=== PATIENT | female | born 1935 | race Caucasian/White ===

== ENCOUNTER → 2020-12-27 | Outpatient (CLI) | payer MEDICARE, BC ==
[~2020-12-27] MED LIST: CIPRO250 MG PO; DILANTIN; DILANTIN100 MG PO; HYDROCODON-ACE1 EA11 PO; IOPAMIDOL 370 MG/ML 200 ML INFUS..BTL INJ ONE; LASIX20 MG PO; XANAX; XANAX0.25 MG PO
[2020-12-27 09:12] LABS: BLOOD UREA NITROGEN 18 mg/dL (7-26); BUN/CREATININE RATIO 23 (6-25); CREATININE, SERUM 0.78 mg/dL (0.57-1.11); EST GLOMERULAR FILTRATION RATE > 60 ML/MIN (60-)
== END ==
LOC: NM 07:07
PROVIDERS: ATTEND Surgery
DX: L03.317 Cellulitis of buttock (principal)
CPT/HCPCS: 36415; 72193; 78315; 82565; 84520; A9503; Q9967; A9521; A9570

== ENCOUNTER 2020-12-28 12:56 | Inpatient (IN) | payer MEDICARE, BC ==
[~2020-12-28] VITALS: Ht 160 cm; Wt 60.3 kg
[~2020-12-28 12:56] MED LIST changes: -CIPRO250 MG PO; -DILANTIN100 MG PO; -HYDROCODON-ACE1 EA11 PO; -IOPAMIDOL 370 MG/ML 200 ML INFUS..BTL INJ ONE; -LASIX20 MG PO; -XANAX0.25 MG PO
[2020-12-28 14:04] LABS: BASOPHILS % 0.5 % (0.0-1.0); HEMATOCRIT 38.5 % (34.2-44.1); HEMOGLOBIN 12.2 g/dL (12.0-16.0); LYMPHOCYTES # (AUTO) 1.1 (1.0-3.2); LYMPHOCYTES % 25.2 % (18.0-39.1); MEAN CORPUSCULAR HGB CONC 31.7 g/dL (31-35); MEAN CORPUSCULAR VOLUME 88.5 fL (81-99); MONOCYTES # (AUTO) 0.4 (0.2-0.8); NEUTROPHILS # (AUTO) 2.7 (2.1-6.9); NEUTROPHILS % 64.1 % (38.7-80.0); PLATELET COUNT 141 x10e3/uL (140-360); RED BLOOD COUNT 4.35 x10e6/uL (3.6-5.1); RED CELL DISTRIBUTION WIDTH 17.4 % (11.7-14.4)
[2020-12-28 14:07] LABS: INR 1.03; PROTHROMBIN TIME 14.1 seconds (11.9-14.5)
[2020-12-28 14:08] LABS: PARTIAL THROMBOPLASTIN TIME 31.8 seconds (23.8-35.5)
[2020-12-28 14:10] LABS: CLARITY,URINE SL CLOUDY (CLEAR); COLOR,URINE YELLOW (YELLOW); KETONES,URINE NEGATIVE (NEGATIVE); LEUKOCYTE ESTERASE ,URINE TRACE (NEGATIVE); NITRITE,URINE NEGATIVE (NEGATIVE); PROTEIN,URINE DIPSTICK NEGATIVE (NEGATIVE); URINE UROBILINOGEN 1 mg/dL (0.2 - 1)
[2020-12-28 14:16] LABS: ALANINE AMINOTRANSFERASE 11 IU/L (0-55); ALBUMIN 3.5 g/dL (3.5-5.0); ALBUMIN/GLOBULIN RATIO 0.9 (0.8-2.0); ALKALINE PHOSPHATASE 76 IU/L (40-150); ANION GAP 12.6 mmol/L (8-16); BLOOD UREA NITROGEN 15 mg/dL (7-26); BUN/CREATININE RATIO 21 (6-25); CARBON DIOXIDE 25 mmol/L (22-29); CHLORIDE 109 mmol/L (98-107); CREATINE KINASE 20 IU/L (29-168); CREATININE, SERUM 0.72 mg/dL (0.57-1.11); EST GLOMERULAR FILTRATION RATE > 60 ML/MIN (60-); GLUCOSE 88 mg/dL (74-118); POTASSIUM 3.6 mmol/L (3.5-5.1); SODIUM 143 mmol/L (136-145)
[2020-12-28 14:20] LABS: BACTERIA,URINE MANY /HPF; EPITHELIAL CELLS,URINE FEW /LPF; RBC,URINE 0-5 /HPF (0-5); WBC,URINE (MAN) 21-50 /HPF (0-5)
[2020-12-28] MEDS ORDERED: HYDROMORPHONE 1MG/1ML INJ IV STA (15:03)
[2020-12-28] MEDS ORDERED: ONDANSETRON HCL INJ 2MG/ML 2ML 2 MG/ML VIAL IV STA (15:03)
[2020-12-28] MEDS ORDERED: VANCOMYCIN 1GM/NS 250 ML 250 ML IV ONE (15:30)
[2020-12-28] MEDS ORDERED: HYDROCODON-ACE1 EA11 PO (15:30)
[2020-12-28] MEDS ORDERED: LASIX20 MG PO (15:30)
[2020-12-28] MEDS ORDERED: XANAX0.25 MG PO (15:30)
[2020-12-28] MEDS ORDERED: DILANTIN100 MG PO (15:30)
[2020-12-28] MEDS: PIPERACILLIN/TAZOBAC 3.375 GM in SODIUM CHLORIDE 0.9% 50ML 50 ML IV SCH (16:48)
[2020-12-28] MEDS: SODIUM CHLORIDE 0.9% 1000ML 1,000 ML IV SCH (16:48)
[2020-12-28 17:14] VITALS: BP 150/63
[2020-12-28 17:40] VITALS: BP 150/63
[2020-12-28 18:00] VITALS: BP 150/63
[2020-12-28 20:00] VITALS: BP 132/60
[2020-12-28 20:52] VITALS: BP 132/60
[2020-12-28 21:28] LABS: CREATINE KINASE MB 0.5 ng/mL (0-5.0)
[2020-12-28] MEDS ORDERED: PIPERACILLIN/TAZOBAC 3.375 GM VIAL ONE (22:08)
[2020-12-28] MEDS ORDERED: SODIUM CHLORIDE 0.9% 50ML 50 ML ONE (22:09)
[2020-12-28] MEDS: ALPRAZOLAM 0.25 MG TAB PO SCH (22:15)
[2020-12-28] MEDS: HYDROMORPHONE 1MG/1ML INJ IV PRN (22:22)
[2020-12-29] VITALS (10 sets, daily range): BP systolic 100–171; BP diastolic 56–73
[2020-12-29] MEDS: PIPERACILLIN/TAZOBAC 3.375 GM in SODIUM CHLORIDE 0.9% 50ML 50 ML IV SCH ×5 (00:20→23:21)
[2020-12-29 02:03] LABS: CREATINE KINASE MB 0.4 ng/mL (0-5.0)
[2020-12-29] MEDS ORDERED: SODIUM CHLORIDE 0.9% 250ML 250 ML ONE (03:10)
[2020-12-29] MEDS ORDERED: TEMAZEPAM 7.5 MG CAP PO PRN (04:45)
[2020-12-29] MEDS ORDERED: POLYETHYLENE GLYCOL 3350 17 GM PACK PO PRN (04:45)
[2020-12-29] MEDS ORDERED: HYDRALAZINE HCL 20 MG/ML VIAL IV PRN (04:45)
[2020-12-29] MEDS ORDERED: ACETAMINOPHEN 325 MG TAB PO PRN (04:45)
[2020-12-29] MEDS: SODIUM CHLORIDE 0.9% 1000ML 1,000 ML IV SCH (05:48)
[2020-12-29] MEDS ORDERED: PIPERACILLIN/TAZOBAC 3.375 GM VIAL ONE ×4 (05:49→22:16)
[2020-12-29] MEDS ORDERED: SODIUM CHLORIDE 0.9% 50ML 50 ML ONE ×3 (05:49→17:00)
[2020-12-29] MEDS: HYDROMORPHONE 1MG/1ML INJ IV PRN ×3 (05:49→22:15)
[2020-12-29 06:02] LABS: BASOPHILS % 0.3 % (0.0-1.0); EOSINOPHILS % 1.2 % (0.0-6.0); HEMOGLOBIN 10.8 g/dL (12.0-16.0); LYMPHOCYTES # (AUTO) 0.8 (1.0-3.2); LYMPHOCYTES % 23.7 % (18.0-39.1); MEAN CORPUSCULAR HEMOGLOBIN 28.6 pg (28-32); MEAN CORPUSCULAR HGB CONC 31.8 g/dL (31-35); MEAN CORPUSCULAR VOLUME 90.2 fL (81-99); MONOCYTES # (AUTO) 0.4 (0.2-0.8); MONOCYTES % 10.9 % (4.4-11.3); NEUTROPHILS % 63.6 % (38.7-80.0); PLATELET COUNT 110 x10e3/uL (140-360); RED BLOOD COUNT 3.77 x10e6/uL (3.6-5.1); RED CELL DISTRIBUTION WIDTH 17.6 % (11.7-14.4)
[2020-12-29 06:37] LABS: ALANINE AMINOTRANSFERASE 8 IU/L (0-55); ALBUMIN 2.6 g/dL (3.5-5.0); ALBUMIN/GLOBULIN RATIO 0.9 (0.8-2.0); ALKALINE PHOSPHATASE 58 IU/L (40-150); BLOOD UREA NITROGEN 16 mg/dL (7-26); BUN/CREATININE RATIO 26 (6-25); CALCIUM 8.5 mg/dL (8.4-10.2); CARBON DIOXIDE 22 mmol/L (22-29); CHLORIDE 115 mmol/L (98-107); CREATININE, SERUM 0.62 mg/dL (0.57-1.11); EST GLOMERULAR FILTRATION RATE > 60 ML/MIN (60-); GLUCOSE 88 mg/dL (74-118); SODIUM 143 mmol/L (136-145)
[2020-12-29 07:07] LABS: CREATINE KINASE MB 0.4 ng/mL (0-5.0)
[2020-12-29 07:23] LABS: CHOL/HDL RATIO 3.6 (3.0-3.6); PHOSPHORUS 3.1 MG/DL (2.3-4.7)
[2020-12-29 07:42] LABS: THYROID STIMULATING HORMONE 1.813 uIU/mL (0.350-4.940)
[2020-12-29] MEDS: FAMOTIDINE 20 MG TAB PO SCH (08:10)
[2020-12-29] MEDS: ALPRAZOLAM 0.25 MG TAB PO SCH ×4 (08:10→22:14)
[2020-12-29] MEDS: DOCUSATE SODIUM 100 MG CAP PO SCH ×2 (08:10→16:48)
[2020-12-29] MEDS ORDERED: HYDROCODONE/APAP 5MG-325MG TAB PO PRN (08:30)
[2020-12-29] MEDS ORDERED: PHENYTOIN 50 MG TAB PO SCH (09:00)
[2020-12-29] MEDS: FUROSEMIDE 20 MG TAB PO SCH ×2 (09:00→16:42)
[2020-12-29] MEDS: PHENYTOIN SODIUM EXT REL 100 MG CAP PO SCH ×4 (09:06→22:14)
[2020-12-29] MEDS ORDERED: LORAZEPAM INJ 2 MG/ML VIAL IV ONE (12:00)
[2020-12-29] MEDS: ENOXAPARIN SOD INJ 40 MG/0.4 ML SYR SC SCH (16:48)
[2020-12-30] VITALS (8 sets, daily range): BP systolic 122–160; BP diastolic 64–94
[2020-12-30] MEDS ORDERED: PIPERACILLIN/TAZOBAC 3.375 GM VIAL ONE ×4 (05:14→23:06)
[2020-12-30] MEDS ORDERED: SODIUM CHLORIDE 0.9% 50ML 50 ML ONE ×4 (05:15→23:07)
[2020-12-30] MEDS: HYDROMORPHONE 1MG/1ML INJ IV PRN ×4 (05:24→22:19)
[2020-12-30] MEDS: PIPERACILLIN/TAZOBAC 3.375 GM in SODIUM CHLORIDE 0.9% 50ML 50 ML IV SCH ×4 (05:24→23:02)
[2020-12-30] MEDS: FUROSEMIDE 20 MG TAB PO SCH ×2 (08:38→17:36)
[2020-12-30] MEDS: DOCUSATE SODIUM 100 MG CAP PO SCH ×2 (08:38→17:36)
[2020-12-30] MEDS: PHENYTOIN SODIUM EXT REL 100 MG CAP PO SCH ×4 (08:38→21:43)
[2020-12-30] MEDS: ALPRAZOLAM 0.25 MG TAB PO SCH ×3 (08:38→21:43)
[2020-12-30] MEDS: FAMOTIDINE 20 MG TAB PO SCH (08:38)
[2020-12-30] MEDS: ENOXAPARIN SOD INJ 40 MG/0.4 ML SYR SC SCH (17:36)
[2020-12-30] MEDS: ONDANSETRON HCL INJ 2MG/ML 2ML 2 MG/ML VIAL IV PRN (22:04)
[2020-12-31 00:07] VITALS: BP 109/56
[2020-12-31 04:14] VITALS: BP 98/55
[2020-12-31] MEDS ORDERED: SODIUM CHLORIDE 0.9% 50ML 50 ML ONE (05:22)
[2020-12-31] MEDS ORDERED: PIPERACILLIN/TAZOBAC 3.375 GM VIAL ONE (05:22)
[2020-12-31] MEDS: HYDROMORPHONE 1MG/1ML INJ IV PRN (05:26)
[2020-12-31] MEDS: PIPERACILLIN/TAZOBAC 3.375 GM in SODIUM CHLORIDE 0.9% 50ML 50 ML IV SCH (05:26)
[2020-12-31] MEDS: ONDANSETRON HCL INJ 2MG/ML 2ML 2 MG/ML VIAL IV PRN (05:26)
[2020-12-31 06:51] LABS: BASOPHILS % 0.2 % (0.0-1.0); EOSINOPHILS # (AUTO) 0.1 (0.0-0.4); EOSINOPHILS % 1.5 % (0.0-6.0); HEMATOCRIT 38.4 % (34.2-44.1); HEMOGLOBIN 12.2 g/dL (12.0-16.0); LYMPHOCYTES # (AUTO) 1.1 (1.0-3.2); LYMPHOCYTES % 22.8 % (18.0-39.1); MEAN CORPUSCULAR HEMOGLOBIN 28.2 pg (28-32); MEAN CORPUSCULAR HGB CONC 31.8 g/dL (31-35); MEAN CORPUSCULAR VOLUME 88.7 fL (81-99); MONOCYTES # (AUTO) 0.4 (0.2-0.8); MONOCYTES % 8.4 % (4.4-11.3); NEUTROPHILS # (AUTO) 3.1 (2.1-6.9); NEUTROPHILS % 66.9 % (38.7-80.0); PLATELET COUNT 107 x10e3/uL (140-360); RED BLOOD COUNT 4.33 x10e6/uL (3.6-5.1); RED CELL DISTRIBUTION WIDTH 17.3 % (11.7-14.4)
[2020-12-31 07:25] VITALS: BP_SYST 119; BP_SYST 162; BP_DIAS 72; BP_DIAS 78
[2020-12-31 07:28] LABS: ANION GAP 14.8 mmol/L (8-16); BLOOD UREA NITROGEN 12 mg/dL (7-26); BUN/CREATININE RATIO 17 (6-25); CALCIUM 9.4 mg/dL (8.4-10.2); CARBON DIOXIDE 23 mmol/L (22-29); CHLORIDE 109 mmol/L (98-107); CREATININE, SERUM 0.69 mg/dL (0.57-1.11); EST GLOMERULAR FILTRATION RATE > 60 ML/MIN (60-); GLUCOSE 92 mg/dL (74-118); POTASSIUM 3.8 mmol/L (3.5-5.1); SODIUM 143 mmol/L (136-145)
[2020-12-31] MEDS ORDERED: CIPRO250 MG PO (08:14)
[2020-12-31 08:27] VITALS: BP 119/72
[2020-12-31] MEDS: FAMOTIDINE 20 MG TAB PO SCH (08:27)
[2020-12-31] MEDS: DOCUSATE SODIUM 100 MG CAP PO SCH (08:27)
[2020-12-31] MEDS: FUROSEMIDE 20 MG TAB PO SCH (08:27)
[2020-12-31] MEDS: PHENYTOIN SODIUM EXT REL 100 MG CAP PO SCH (08:27)
[2020-12-31] MEDS: ALPRAZOLAM 0.25 MG TAB PO SCH (08:27)
== END 2020-12-31 13:15 | disposition home or self-care (01) | DRG 689 ==
LOC: ER 13:18 → ERHOLD 15:46 → MED/SURG3 17:08 → UNDODISIN 12-31 11:30
PROVIDERS: ADMIT Internal Medicine; ATTEND Internal Medicine
DX: N39.0 Urinary tract infection, site not specified (principal); R53.2 Functional quadriplegia; M48.55XA Collapsed vertebra, not elsewhere classified, thoracolumbar region, initial encounter for fracture; M54.5 Low back pain; G40.909 Epilepsy, unspecified, not intractable, without status epilepticus; F41.9 Anxiety disorder, unspecified; Z99.3 Dependence on wheelchair; B95.2 Enterococcus as the cause of diseases classified elsewhere; Z20.822 Contact with and (suspected) exposure to COVID-19
CPT/HCPCS: 36415; 71045; 72131; 80048; 80053; 80061; 81001; 82550; 82553; 83735; 84100; 84443; 84484; 85025; 85610; 85730; 87040; 87086; 87186; 93005; 97139; 99251; 99284; J1170; J1650; J2060; J2405; J2543; J3370; J7030; J7050; U0002

== ENCOUNTER 2021-01-29 14:46 | Emergency (ER) | payer MEDICARE, BC ==
[~2021-01-29] VITALS: Ht 160 cm; Wt 60.3 kg
[~2021-01-29 14:46] MED LIST changes: +CIPRO250 MG PO; +DILANTIN100 MG PO; +HYDROCODON-ACE1 EA11 PO; +LASIX20 MG PO; +XANAX0.25 MG PO
[2021-01-29 15:36] LABS: BASOPHILS % 0.2 % (0.0-1.0); EOSINOPHILS % 0.8 % (0.0-6.0); HEMATOCRIT 37.2 % (34.2-44.1); HEMOGLOBIN 12.3 g/dL (12.0-16.0); LYMPHOCYTES # (AUTO) 1.5 (1.0-3.2); LYMPHOCYTES % 29.9 % (18.0-39.1); MEAN CORPUSCULAR HEMOGLOBIN 29.5 pg (28-32); MEAN CORPUSCULAR HGB CONC 33.1 g/dL (31-35); MEAN CORPUSCULAR VOLUME 89.2 fL (81-99); MONOCYTES # (AUTO) 0.4 (0.2-0.8); NEUTROPHILS % 60.9 % (38.7-80.0); PLATELET COUNT 163 x10e3/uL (140-360); RED BLOOD COUNT 4.17 x10e6/uL (3.6-5.1)
[2021-01-29 15:51] LABS: CLARITY,URINE SL CLOUDY (CLEAR); COLOR,URINE YELLOW (YELLOW); KETONES,URINE NEGATIVE (NEGATIVE); LEUKOCYTE ESTERASE ,URINE SMALL (NEGATIVE); NITRITE,URINE NEGATIVE (NEGATIVE); PROTEIN,URINE DIPSTICK NEGATIVE (NEGATIVE); URINE UROBILINOGEN 0.2 mg/dL (0.2 - 1)
[2021-01-29 15:52] LABS: ALANINE AMINOTRANSFERASE 9 IU/L (0-55); ALBUMIN 3.3 g/dL (3.5-5.0); ALBUMIN/GLOBULIN RATIO 0.9 (0.8-2.0); ALKALINE PHOSPHATASE 62 IU/L (40-150); BLOOD UREA NITROGEN 16 mg/dL (7-26); BUN/CREATININE RATIO 25 (6-25); CALCIUM 9.9 mg/dL (8.4-10.2); CARBON DIOXIDE 20 mmol/L (22-29); CHLORIDE 114 mmol/L (98-107); CREATININE, SERUM 0.65 mg/dL (0.57-1.11); EST GLOMERULAR FILTRATION RATE > 60 ML/MIN (60-); GLUCOSE 86 mg/dL (74-118); SODIUM 140 mmol/L (136-145)
[2021-01-29 15:53] LABS: LIPASE 35 U/L (8-78)
[2021-01-29 16:09] LABS: BACTERIA,URINE RARE /HPF; EPITHELIAL CELLS,URINE RARE /LPF; RBC,URINE 0-5 /HPF (0-5)
[2021-01-29 17:08] VITALS: BP 134/62
== END 2021-01-29 17:09 | disposition home or self-care (01) ==
LOC: ER 15:18
DX: I10 Essential (primary) hypertension (principal); M25.552 Pain in left hip; M25.551 Pain in right hip; I69.351 Hemiplegia and hemiparesis following cerebral infarction affecting right dominant side
CPT/HCPCS: 36415; 71045; 80053; 81001; 83690; 84484; 85025; 93005; 99283

== ENCOUNTER 2021-03-17 15:50 | Emergency (ER) | payer MEDICARE, BC ==
[~2021-03-17] VITALS: Ht 160 cm; Wt 60.3 kg
[2021-03-17 17:25] LABS: CLARITY,URINE CLEAR (CLEAR); COLOR,URINE YELLOW (YELLOW); KETONES,URINE NEGATIVE (NEGATIVE); NITRITE,URINE NEGATIVE (NEGATIVE); PROTEIN,URINE DIPSTICK NEGATIVE (NEGATIVE); URINE UROBILINOGEN 0.2 mg/dL (0.2 - 1)
[2021-03-17 17:26] LABS: LEUKOCYTE ESTERASE ,URINE SMALL (NEGATIVE)
[2021-03-17 17:37] LABS: BACTERIA,URINE RARE /HPF; EPITHELIAL CELLS,URINE RARE /LPF; RBC,URINE 0-5 /HPF (0-5); WBC,URINE (MAN) >50 /HPF (0-5)
[2021-03-17] MEDS ORDERED: AUGMENTIN 875-1 EACH PO (18:07)
== END 2021-03-17 18:38 | disposition home or self-care (01) ==
LOC: ER 17:04
DX: R30.0 Dysuria (principal); N39.0 Urinary tract infection, site not specified; G40.909 Epilepsy, unspecified, not intractable, without status epilepticus; F41.9 Anxiety disorder, unspecified; M54.9 Dorsalgia, unspecified; G89.29 Other chronic pain; I69.351 Hemiplegia and hemiparesis following cerebral infarction affecting right dominant side
CPT/HCPCS: 81001; 87086; 99283

== ENCOUNTER 2021-10-08 13:18 | Inpatient (IN) | payer MEDICARE, BC ==
[~2021-10-08] VITALS: Ht 160 cm; Wt 72.6 kg
[~2021-10-08 13:18] MED LIST changes: +AUGMENTIN 875-1 EACH PO
[2021-10-08] MEDS ORDERED: SODIUM CHLORIDE 0.9% 1000ML 1,000 ML IV STA (14:04)
[2021-10-08 14:28] LABS: BASOPHILS % 0.4 % (0.0-1.0); EOSINOPHILS % 0.4 % (0.0-6.0); HEMATOCRIT 42.3 % (34.2-44.1); HEMOGLOBIN 14.3 g/dL (12.0-16.0); LYMPHOCYTES # (AUTO) 0.9 (1.0-3.2); LYMPHOCYTES % 36.8 % (18.0-39.1); MEAN CORPUSCULAR HGB CONC 33.8 g/dL (31-35); MEAN CORPUSCULAR VOLUME 97.7 fL (81-99); MONOCYTES # (AUTO) 0.3 (0.2-0.8); MONOCYTES % 10.3 % (4.4-11.3); NEUTROPHILS # (AUTO) 1.3 (2.1-6.9); NEUTROPHILS % 51.7 % (38.7-80.0); PLATELET COUNT 70 x10e3/uL (140-360); RED BLOOD COUNT 4.33 x10e6/uL (3.6-5.1); RED CELL DISTRIBUTION WIDTH 13.5 % (11.7-14.4)
[2021-10-08 14:32] LABS: INR 0.93; PROTHROMBIN TIME 13.2 seconds (11.9-14.5)
[2021-10-08 14:33] LABS: PARTIAL THROMBOPLASTIN TIME 30.9 seconds (23.8-35.5)
[2021-10-08 14:47] LABS: ALBUMIN 3.1 g/dL (3.5-5.0); ALBUMIN/GLOBULIN RATIO 0.9 (0.8-2.0); ANION GAP 8.8 mmol/L (8-16); CALCIUM 10.4 mg/dL (8.4-10.2); CREATININE, SERUM 0.6 mg/dL (0.57-1.11); MAGNESIUM 1.7 MG/DL (1.3-2.1); POTASSIUM 3.8 mmol/L (3.5-5.1)
[2021-10-08 14:53] LABS: CREATINE KINASE MB 0.1 ng/mL (0-5.0)
[2021-10-08 15:01] LABS: CLARITY,URINE SL CLOUDY (CLEAR); COLOR,URINE YELLOW (YELLOW); KETONES,URINE NEGATIVE (NEGATIVE); LEUKOCYTE ESTERASE ,URINE NEGATIVE (NEGATIVE); NITRITE,URINE NEGATIVE (NEGATIVE); PROTEIN,URINE DIPSTICK NEGATIVE (NEGATIVE); URINE UROBILINOGEN 0.2 mg/dL (0.2 - 1)
[2021-10-08 15:02] LABS: AMPHETAMINES SCREEN,URINE NEGATIVE (NEGATIVE); BENZODIAZEPINES SCREEN,URINE POSITIVE (NEGATIVE); PHENCYCLIDINE SCREEN,URINE NEGATIVE (NEGATIVE)
[2021-10-08 15:09] LABS: SALICYLATE < 5.0 mg/dL (0-30)
[2021-10-08 15:18] LABS: BACTERIA,URINE MODERATE /HPF; EPITHELIAL CELLS,URINE FEW /LPF; WBC,URINE (MAN) 0-5 /HPF (0-5)
[2021-10-08] MEDS ORDERED: ONDANSETRON HCL INJ 2MG/ML 2ML 2 MG/ML VIAL IV PRN (18:15)
[2021-10-08] MEDS: SODIUM CHLORIDE 0.9% 1000ML 1,000 ML IV SCH (19:05)
[2021-10-08] MEDS: FAMOTIDINE 20 MG/2 ML VIAL IV SCH (19:05)
[2021-10-09] VITALS (7 sets, daily range): BP systolic 126–155; BP diastolic 55–77
[2021-10-09] MEDS: HYDROCODONE/APAP 5MG-325MG TAB PO PRN ×5 (00:20→21:00)
[2021-10-09 03:39] LABS: CREATINE KINASE MB 0.4 ng/mL (0-5.0)
[2021-10-09] MEDS: SODIUM CHLORIDE 0.9% 1000ML 1,000 ML IV SCH (04:50)
[2021-10-09] MEDS: FAMOTIDINE 20 MG/2 ML VIAL IV SCH ×2 (05:53→17:37)
[2021-10-09] MEDS ORDERED: SODIUM CHLORIDE 0.9% 1000ML 1,000 ML IV ONE (18:15)
[2021-10-09] MEDS: ALPRAZOLAM 0.25 MG TAB PO PRN (21:00)
[2021-10-09] MEDS ORDERED: ALPRAZOLAM 0.25 MG TAB PO SCH (21:00)
[2021-10-10] VITALS (9 sets, daily range): BP systolic 113–148; BP diastolic 57–68
[2021-10-10 05:24] LABS: EOSINOPHILS % 0.4 % (0.0-6.0); HEMATOCRIT 39.8 % (34.2-44.1); HEMOGLOBIN 13.1 g/dL (12.0-16.0); LYMPHOCYTES # (AUTO) 0.9 (1.0-3.2); LYMPHOCYTES % 33.7 % (18.0-39.1); MEAN CORPUSCULAR HEMOGLOBIN 32.2 pg (28-32); MEAN CORPUSCULAR HGB CONC 32.9 g/dL (31-35); MEAN CORPUSCULAR VOLUME 97.8 fL (81-99); MONOCYTES # (AUTO) 0.2 (0.2-0.8); MONOCYTES % 6.1 % (4.4-11.3); NEUTROPHILS # (AUTO) 1.6 (2.1-6.9); NEUTROPHILS % 59.4 % (38.7-80.0); PLATELET COUNT 64 x10e3/uL (140-360); RED BLOOD COUNT 4.07 x10e6/uL (3.6-5.1); RED CELL DISTRIBUTION WIDTH 13.7 % (11.7-14.4)
[2021-10-10 05:42] LABS: ANION GAP 6.9 mmol/L (8-16); CALCIUM 9.3 mg/dL (8.4-10.2); CREATININE, SERUM 0.58 mg/dL (0.57-1.11); MAGNESIUM 1.7 MG/DL (1.3-2.1); PHOSPHORUS 1.8 MG/DL (2.3-4.7); POTASSIUM 3.9 mmol/L (3.5-5.1)
[2021-10-10] MEDS: FAMOTIDINE 20 MG/2 ML VIAL IV SCH (05:49)
[2021-10-10 07:44] LABS: ALBUMIN 2.6 g/dL (3.5-5.0); BILIRUBIN,DIRECT 0.2 mg/dL (0.0-0.5); CHOL/HDL RATIO 3.3 (3.0-3.6)
[2021-10-10 07:51] LABS: CREATINE KINASE MB 1.7 ng/mL (0-5.0)
[2021-10-10] MEDS: FUROSEMIDE 20 MG TAB PO SCH ×2 (10:02→17:24)
[2021-10-10] MEDS ORDERED: PHOSPHORUS 250 MG TAB PO ONE (11:00)
[2021-10-10] MEDS ORDERED: ONDANSETRON HCL 4 MG ORAL DISINTEGRATING TAB PO PRN (17:00)
[2021-10-10] MEDS: HYDROCODONE/APAP 5MG-325MG TAB PO PRN (18:28)
[2021-10-11 00:33] VITALS: BP 135/67
[2021-10-11] MEDS: HYDROCODONE/APAP 5MG-325MG TAB PO PRN ×4 (00:37→21:51)
[2021-10-11 01:40] VITALS: BP 152/58
[2021-10-11 06:10] VITALS: BP 132/64
[2021-10-11 06:25] LABS: EOSINOPHILS % 0.8 % (0.0-6.0); HEMATOCRIT 39.2 % (34.2-44.1); HEMOGLOBIN 13.2 g/dL (12.0-16.0); LYMPHOCYTES # (AUTO) 1.2 (1.0-3.2); LYMPHOCYTES % 45.2 % (18.0-39.1); MEAN CORPUSCULAR HEMOGLOBIN 32.5 pg (28-32); MEAN CORPUSCULAR HGB CONC 33.7 g/dL (31-35); MEAN CORPUSCULAR VOLUME 96.6 fL (81-99); MONOCYTES # (AUTO) 0.2 (0.2-0.8); MONOCYTES % 7.3 % (4.4-11.3); NEUTROPHILS # (AUTO) 1.2 (2.1-6.9); NEUTROPHILS % 46.3 % (38.7-80.0); PLATELET COUNT 59 x10e3/uL (140-360); RED BLOOD COUNT 4.06 x10e6/uL (3.6-5.1); RED CELL DISTRIBUTION WIDTH 13.5 % (11.7-14.4)
[2021-10-11] MEDS: ALPRAZOLAM 0.25 MG TAB PO PRN (06:41)
[2021-10-11 07:29] LABS: ANION GAP 7.4 mmol/L (8-16); CALCIUM 8.9 mg/dL (8.4-10.2); CREATININE, SERUM 0.53 mg/dL (0.57-1.11); MAGNESIUM 1.6 MG/DL (1.3-2.1); PHOSPHORUS 2.1 MG/DL (2.3-4.7); POTASSIUM 3.4 mmol/L (3.5-5.1)
[2021-10-11] MEDS: FAMOTIDINE 20 MG TAB PO SCH ×2 (08:53→17:33)
[2021-10-11] MEDS: FUROSEMIDE 20 MG TAB PO SCH ×2 (08:53→17:33)
[2021-10-11] MEDS ORDERED: LORAZEPAM INJ 2 MG/ML VIAL IV PRN (10:00)
[2021-10-11] MEDS ORDERED: DOCUSATE SODIUM 100 MG CAP PO ONE (11:00)
[2021-10-11] MEDS ORDERED: POTASSIUM CHLORIDE 20 MEQ TAB CR PO ONE (11:00)
[2021-10-11] MEDS ORDERED: LACTULOSE SYRUP 20 GM/30 ML UDC PO ONE (11:00)
[2021-10-11] MEDS: CHOLECALCIFEROL 400 UNIT TAB PO SCH (11:29)
[2021-10-11] MEDS: ASCORBIC ACID 500 MG TAB PO SCH ×2 (11:29→17:34)
[2021-10-11] MEDS: ZINC SULFATE 220 MG CAP PO SCH (11:29)
[2021-10-11 19:10] VITALS: BP 116/60
[2021-10-11 22:05] VITALS: BP 116/60
[2021-10-12 00:45] VITALS: BP 160/73
[2021-10-12] MEDS: ALPRAZOLAM 0.25 MG TAB PO PRN ×2 (01:00→06:16)
[2021-10-12] MEDS: HYDROCODONE/APAP 5MG-325MG TAB PO PRN ×4 (03:30→14:30)
[2021-10-12 05:40] VITALS: BP 131/69
[2021-10-12 06:11] LABS: BASOPHILS % 0.3 % (0.0-1.0); EOSINOPHILS % 0.3 % (0.0-6.0); HEMATOCRIT 39.1 % (34.2-44.1); HEMOGLOBIN 13.4 g/dL (12.0-16.0); MEAN CORPUSCULAR HEMOGLOBIN 32.4 pg (28-32); MEAN CORPUSCULAR HGB CONC 34.3 g/dL (31-35); MEAN CORPUSCULAR VOLUME 94.7 fL (81-99); MONOCYTES # (AUTO) 0.2 (0.2-0.8); NEUTROPHILS # (AUTO) 1.6 (2.1-6.9); NEUTROPHILS % 55.1 % (38.7-80.0); PLATELET COUNT 70 x10e3/uL (140-360); RED BLOOD COUNT 4.13 x10e6/uL (3.6-5.1); RED CELL DISTRIBUTION WIDTH 13.4 % (11.7-14.4)
[2021-10-12 07:24] LABS: ALBUMIN 2.7 g/dL (3.5-5.0); ALBUMIN/GLOBULIN RATIO 0.8 (0.8-2.0); ANION GAP 9.3 mmol/L (8-16); CALCIUM 9.2 mg/dL (8.4-10.2); CREATININE, SERUM 0.53 mg/dL (0.57-1.11); POTASSIUM 3.3 mmol/L (3.5-5.1)
[2021-10-12 08:06] VITALS: BP 128/69
[2021-10-12] MEDS: FAMOTIDINE 20 MG TAB PO SCH ×2 (08:36→17:17)
[2021-10-12] MEDS: ASCORBIC ACID 500 MG TAB PO SCH ×2 (08:37→17:17)
[2021-10-12] MEDS: FUROSEMIDE 20 MG TAB PO SCH ×2 (08:37→17:17)
[2021-10-12] MEDS: ZINC SULFATE 220 MG CAP PO SCH (08:37)
[2021-10-12] MEDS: CHOLECALCIFEROL 400 UNIT TAB PO SCH (08:37)
[2021-10-12] MEDS ORDERED: POTASSIUM CHLORIDE 20 MEQ TAB CR PO ONE (09:00)
[2021-10-12] MEDS ORDERED: DOCUSATE SODIUM 100 MG CAP PO SCH (09:00)
[2021-10-12] MEDS ORDERED: ZINC SULFATE50 MG PO (09:47)
[2021-10-12] MEDS ORDERED: PHENYTOIN SODI100 MG PO (09:47)
[2021-10-12] MEDS ORDERED: FAMOTIDINE20 MG PO (09:47)
[2021-10-12] MEDS ORDERED: ASCORBIC ACID500 MG PO (09:47)
[2021-10-12] MEDS ORDERED: COLACE100 MG PO (09:47)
[2021-10-12] MEDS ORDERED: Cholecalciferol PO (09:47)
[2021-10-12] MEDS ORDERED: HYDROCODON-ACE1 EA11 PO (13:47)
[2021-10-13] MEDS ORDERED: PHENYTOIN SODIUM EXT REL 100 MG CAP PO SCH (09:00)
== END 2021-10-12 18:05 | DRG 177 ==
LOC: ER 14:04 → ERHOLD 18:42 → IMCU 23:42
PROVIDERS: ADMIT Internal Medicine; ATTEND Internal Medicine
PROC: 8E0ZXY6 Isolation (ICD-10-PCS; principal; 2021-10-08)
DX: U07.1 COVID-19 (principal); J12.82 Pneumonia due to coronavirus disease 2019; E86.0 Dehydration; R55 Syncope and collapse; F41.9 Anxiety disorder, unspecified; T42.0X5A Adverse effect of hydantoin derivatives, initial encounter; G40.909 Epilepsy, unspecified, not intractable, without status epilepticus; Z86.73 Personal history of transient ischemic attack (TIA), and cerebral infarction without residual deficits; G89.29 Other chronic pain; K59.00 Constipation, unspecified; E87.6 Hypokalemia; Z74.09 Other reduced mobility; F19.90 Other psychoactive substance use, unspecified, uncomplicated
CPT/HCPCS: 36415; 70450; 71045; 80048; 80053; 80061; 80076; 80185; 80307; 80329; 81001; 82140; 82550; 82553; 82948; 83735; 83880; 84100; 84484; 85025; 85610; 85730; 87040; 87086; 87186; 93005; 93306; 93880; 94799; 97139; 99251; 99284; J2060; J7030; U0002

== ENCOUNTER 2022-01-10 13:48 | Emergency (ER) | payer MEDICARE, BC ==
[~2022-01-10] VITALS: Ht 160 cm; Wt 72.6 kg
[~2022-01-10 13:48] MED LIST changes: +ASCORBIC ACID500 MG PO; +CEFDINIR300 MG PO; +COLACE100 MG PO; +Cholecalciferol PO; +FAMOTIDINE20 MG PO; +PHENYTOIN SODI100 MG PO; +ZINC SULFATE50 MG PO
[2022-01-10] MEDS ORDERED: Vancomycin IV 1 GM in SODIUM CHLORIDE 0.9% 250ML 250 ML IV ONE (14:15)
[2022-01-10 14:28] LABS: BASOPHILS % 0.2 % (0.0-1.0); EOSINOPHILS # (AUTO) 0.1 (0.0-0.4); EOSINOPHILS % 1.1 % (0.0-6.0); HEMATOCRIT 40.3 % (34.2-44.1); HEMOGLOBIN 14.2 g/dL (12.0-16.0); LYMPHOCYTES # (AUTO) 1.4 (1.0-3.2); MEAN CORPUSCULAR HEMOGLOBIN 33.7 pg (28-32); MEAN CORPUSCULAR HGB CONC 35.2 g/dL (31-35); MEAN CORPUSCULAR VOLUME 95.7 fL (81-99); MONOCYTES # (AUTO) 0.4 (0.2-0.8); MONOCYTES % 7.8 % (4.4-11.3); NEUTROPHILS # (AUTO) 2.7 (2.1-6.9); NEUTROPHILS % 60.7 % (38.7-80.0); PLATELET COUNT 105 x10e3/uL (140-360); RED BLOOD COUNT 4.21 x10e6/uL (3.6-5.1); RED CELL DISTRIBUTION WIDTH 14.4 % (11.7-14.4)
[2022-01-10 14:43] LABS: CLARITY,URINE SL CLOUDY (CLEAR); COLOR,URINE YELLOW (YELLOW); KETONES,URINE NEGATIVE (NEGATIVE); LEUKOCYTE ESTERASE ,URINE NEGATIVE (NEGATIVE); NITRITE,URINE NEGATIVE (NEGATIVE); PROTEIN,URINE DIPSTICK NEGATIVE (NEGATIVE); URINE UROBILINOGEN 0.2 mg/dL (0.2 - 1)
[2022-01-10 14:48] LABS: ALBUMIN/GLOBULIN RATIO 0.8 (0.8-2.0); ANION GAP 10.9 mmol/L (8-16); CALCIUM 11.2 mg/dL (8.4-10.2); CREATININE, SERUM 0.72 mg/dL (0.57-1.11); POTASSIUM 3.9 mmol/L (3.5-5.1)
[2022-01-10 14:54] LABS: BACTERIA,URINE MODERATE /HPF; EPITHELIAL CELLS,URINE MODERATE /LPF
== END 2022-01-10 15:35 | disposition home or self-care (01) ==
LOC: ER 13:52
DX: R35.0 Frequency of micturition (principal); R53.83 Other fatigue; G40.909 Epilepsy, unspecified, not intractable, without status epilepticus; M54.9 Dorsalgia, unspecified; G89.29 Other chronic pain; I69.351 Hemiplegia and hemiparesis following cerebral infarction affecting right dominant side
CPT/HCPCS: 36415; 80053; 81001; 85025; 87086; 99284; J3370; J7050

== ENCOUNTER 2022-04-09 13:41 | Emergency (ER) | payer MEDICARE, BC ==
[~2022-04-09] VITALS: Ht 160 cm; Wt 72.6 kg
[2022-04-09] MEDS ORDERED: OXYBUTYNIN CHLORIDE 5 MG TAB PO ONE (14:15)
[2022-04-09 15:18] LABS: CLARITY,URINE CLEAR (CLEAR); COLOR,URINE YELLOW (YELLOW); LEUKOCYTE ESTERASE ,URINE NEGATIVE (NEGATIVE); NITRITE,URINE NEGATIVE (NEGATIVE)
[2022-04-09 15:19] LABS: KETONES,URINE NEGATIVE (NEGATIVE); PROTEIN,URINE DIPSTICK NEGATIVE (NEGATIVE); URINE UROBILINOGEN 0.2 mg/dL (0.2 - 1)
[2022-04-09 15:38] LABS: BASOPHILS % 0.2 % (0.0-1.0); EOSINOPHILS % 0.9 % (0.0-6.0); HEMATOCRIT 39.9 % (34.2-44.1); HEMOGLOBIN 13.7 g/dL (12.0-16.0); LYMPHOCYTES # (AUTO) 1.2 (1.0-3.2); LYMPHOCYTES % 25.8 % (18.0-39.1); MEAN CORPUSCULAR HEMOGLOBIN 34.8 pg (28-32); MEAN CORPUSCULAR HGB CONC 34.3 g/dL (31-35); MEAN CORPUSCULAR VOLUME 101.3 fL (81-99); MONOCYTES # (AUTO) 0.3 (0.2-0.8); MONOCYTES % 7.4 % (4.4-11.3); NEUTROPHILS # (AUTO) 2.9 (2.1-6.9); NEUTROPHILS % 65.5 % (38.7-80.0); PLATELET COUNT 131 x10e3/uL (140-360); RED BLOOD COUNT 3.94 x10e6/uL (3.6-5.1); RED CELL DISTRIBUTION WIDTH 13.3 % (11.7-14.4)
[2022-04-09 15:39] LABS: EPITHELIAL CELLS,URINE FEW /LPF
[2022-04-09 15:55] LABS: ANION GAP 13.6 mmol/L (8-16); CALCIUM 9.9 mg/dL (8.4-10.2); CREATININE, SERUM 0.69 mg/dL (0.57-1.11); POTASSIUM 3.6 mmol/L (3.5-5.1)
== END 2022-04-09 16:49 | disposition home or self-care (01) ==
LOC: ER 13:46
DX: R30.0 Dysuria (principal); R33.9 Retention of urine, unspecified; R10.30 Lower abdominal pain, unspecified; F41.9 Anxiety disorder, unspecified; G40.909 Epilepsy, unspecified, not intractable, without status epilepticus; M54.9 Dorsalgia, unspecified; G89.29 Other chronic pain; I69.351 Hemiplegia and hemiparesis following cerebral infarction affecting right dominant side
CPT/HCPCS: 36415; 80048; 81001; 85025; 87086; 99283

== ENCOUNTER 2022-04-18 22:20 | Emergency (ER) | payer MEDICARE, BC ==
[~2022-04-18] VITALS: Ht 160 cm; Wt 72.6 kg
[2022-04-18 23:57] LABS: BASOPHILS % 0.3 % (0.0-1.0); EOSINOPHILS # (AUTO) 0.1 (0.0-0.4); HEMATOCRIT 39.1 % (34.2-44.1); HEMOGLOBIN 13.6 g/dL (12.0-16.0); LYMPHOCYTES # (AUTO) 1.3 (1.0-3.2); LYMPHOCYTES % 21.7 % (18.0-39.1); MEAN CORPUSCULAR HEMOGLOBIN 34.6 pg (28-32); MEAN CORPUSCULAR HGB CONC 34.8 g/dL (31-35); MEAN CORPUSCULAR VOLUME 99.5 fL (81-99); MONOCYTES # (AUTO) 0.5 (0.2-0.8); MONOCYTES % 7.9 % (4.4-11.3); NEUTROPHILS # (AUTO) 4.3 (2.1-6.9); NEUTROPHILS % 68.9 % (38.7-80.0); PLATELET COUNT 132 x10e3/uL (140-360); RED BLOOD COUNT 3.93 x10e6/uL (3.6-5.1); RED CELL DISTRIBUTION WIDTH 13.5 % (11.7-14.4)
[2022-04-19 00:15] LABS: ALBUMIN 3.3 g/dL (3.5-5.0); ALBUMIN/GLOBULIN RATIO 0.9 (0.8-2.0); ANION GAP 13.1 mmol/L (8-16); CALCIUM 11.1 mg/dL (8.4-10.2); CREATININE, SERUM 0.73 mg/dL (0.57-1.11); POTASSIUM 4.1 mmol/L (3.5-5.1)
[2022-04-19 01:46] LABS: CLARITY,URINE SL CLOUDY (CLEAR); COLOR,URINE YELLOW (YELLOW); KETONES,URINE NEGATIVE (NEGATIVE); LEUKOCYTE ESTERASE ,URINE SMALL (NEGATIVE); NITRITE,URINE NEGATIVE (NEGATIVE); PROTEIN,URINE DIPSTICK NEGATIVE (NEGATIVE); URINE UROBILINOGEN 0.2 mg/dL (0.2 - 1)
[2022-04-19 01:49] LABS: BACTERIA,URINE MODERATE /HPF; EPITHELIAL CELLS,URINE FEW /LPF; RBC,URINE 0-5 /HPF (0-5)
[2022-04-19] MEDS ORDERED: CEFDINIR300 MG PO (02:01)
[2022-04-19] MEDS ORDERED: LACTULOSE20 GM/30 M PO (02:06)
== END 2022-04-19 02:32 | disposition home or self-care (01) ==
LOC: ER 22:37
DX: Z46.6 Encounter for fitting and adjustment of urinary device (principal); N30.90 Cystitis, unspecified without hematuria; R33.9 Retention of urine, unspecified; K59.00 Constipation, unspecified; R10.30 Lower abdominal pain, unspecified
CPT/HCPCS: 36415; 51700; 74176; 80053; 81001; 85025; 87086; 87186; 99283

== ENCOUNTER 2022-04-21 20:30 | Emergency (ER) | payer MEDICARE, BC ==
[~2022-04-21] VITALS: Ht 160 cm; Wt 72.6 kg
[~2022-04-21 20:30] MED LIST changes: +LACTULOSE20 GM/30 M PO
== END 2022-04-21 21:05 | disposition home or self-care (01) ==
LOC: ER 21:03
DX: Z46.6 Encounter for fitting and adjustment of urinary device (principal); G40.909 Epilepsy, unspecified, not intractable, without status epilepticus; F41.9 Anxiety disorder, unspecified; M54.9 Dorsalgia, unspecified; G89.29 Other chronic pain; I69.351 Hemiplegia and hemiparesis following cerebral infarction affecting right dominant side
CPT/HCPCS: 99282

== ENCOUNTER 2022-04-25 16:41 | Inpatient (IN) | payer MEDICARE, BC ==
[~2022-04-25] VITALS: Ht 160 cm; Wt 54.4 kg
[2022-04-25 17:37] LABS: BASOPHILS % 0.2 % (0.0-1.0); EOSINOPHILS % 0.4 % (0.0-6.0); HEMATOCRIT 38.1 % (34.2-44.1); HEMOGLOBIN 13.5 g/dL (12.0-16.0); LYMPHOCYTES # (AUTO) 1.1 (1.0-3.2); LYMPHOCYTES % 19.9 % (18.0-39.1); MEAN CORPUSCULAR HEMOGLOBIN 35.1 pg (28-32); MEAN CORPUSCULAR HGB CONC 35.4 g/dL (31-35); MONOCYTES # (AUTO) 0.4 (0.2-0.8); MONOCYTES % 7.2 % (4.4-11.3); NEUTROPHILS # (AUTO) 4.1 (2.1-6.9); NEUTROPHILS % 72.1 % (38.7-80.0); PLATELET COUNT 169 x10e3/uL (140-360); RED BLOOD COUNT 3.85 x10e6/uL (3.6-5.1); RED CELL DISTRIBUTION WIDTH 13.9 % (11.7-14.4)
[2022-04-25 17:55] LABS: ALBUMIN 3.4 g/dL (3.5-5.0); ALBUMIN/GLOBULIN RATIO 0.9 (0.8-2.0); ANION GAP 12.7 mmol/L (8-16); CALCIUM 10.6 mg/dL (8.4-10.2); CREATININE, SERUM 0.75 mg/dL (0.57-1.11); POTASSIUM 3.7 mmol/L (3.5-5.1)
[2022-04-25 18:01] LABS: CREATINE KINASE MB 0.4 ng/mL (0-5.0)
[2022-04-25 18:13] LABS: CLARITY,URINE SL CLOUDY (CLEAR); COLOR,URINE YELLOW (YELLOW); KETONES,URINE TRACE (NEGATIVE); LEUKOCYTE ESTERASE ,URINE SMALL (NEGATIVE); NITRITE,URINE POSITIVE (NEGATIVE); PROTEIN,URINE DIPSTICK NEGATIVE (NEGATIVE); URINE UROBILINOGEN 0.2 mg/dL (0.2 - 1)
[2022-04-25 18:29] LABS: BACTERIA,URINE MANY /HPF; EPITHELIAL CELLS,URINE FEW /LPF; RBC,URINE 21-50 /HPF (0-5); TRANSITIONAL EPI CELLS,URINE FEW
[2022-04-25 18:33] LABS: YEAST,URINE MANY
[2022-04-25] MEDS ORDERED: Vancomycin IV 500 MG in SODIUM CHLORIDE 0.9% 100 ML IV SCH (18:45)
[2022-04-25 19:40] VITALS: BP 125/95
[2022-04-25 21:00] VITALS: BP 125/95
[2022-04-25] MEDS: PHENYTOIN SODIUM EXT REL 100 MG CAP PO SCH (21:43)
[2022-04-25] MEDS: ALPRAZOLAM 0.25 MG TAB PO SCH (21:43)
[2022-04-25] MEDS: HYDROCODONE/APAP 5MG-325MG TAB PO PRN (22:41)
[2022-04-26] VITALS (9 sets, daily range): BP systolic 110–141; BP diastolic 61–77
[2022-04-26] MEDS ORDERED: MAGNESIUM HYDROXIDE 30 ML UDC PO PRN (04:15)
[2022-04-26 07:17] LABS: BASOPHILS % 0.2 % (0.0-1.0); EOSINOPHILS % 0.7 % (0.0-6.0); HEMATOCRIT 34.5 % (34.2-44.1); HEMOGLOBIN 12.1 g/dL (12.0-16.0); LYMPHOCYTES # (AUTO) 1.2 (1.0-3.2); LYMPHOCYTES % 26.1 % (18.0-39.1); MEAN CORPUSCULAR HEMOGLOBIN 34.5 pg (28-32); MEAN CORPUSCULAR HGB CONC 35.1 g/dL (31-35); MEAN CORPUSCULAR VOLUME 98.3 fL (81-99); MONOCYTES # (AUTO) 0.3 (0.2-0.8); MONOCYTES % 6.8 % (4.4-11.3); NEUTROPHILS # (AUTO) 2.9 (2.1-6.9); NEUTROPHILS % 65.7 % (38.7-80.0); PLATELET COUNT 119 x10e3/uL (140-360); RED BLOOD COUNT 3.51 x10e6/uL (3.6-5.1); RED CELL DISTRIBUTION WIDTH 14.2 % (11.7-14.4)
[2022-04-26 08:07] LABS: ALBUMIN 2.9 g/dL (3.5-5.0); ALKALINE PHOSPHATASE 67 IU/L (40-150); ANION GAP 8.5 mmol/L (8-16); BLOOD UREA NITROGEN 8 mg/dL (7-26); BUN/CREATININE RATIO 14 (6-25); CALCIUM 9.5 mg/dL (8.4-10.2); CARBON DIOXIDE 24 mmol/L (22-29); CHLORIDE 114 mmol/L (98-107); CREATININE, SERUM 0.57 mg/dL (0.57-1.11); GLUCOSE 100 mg/dL (74-118); POTASSIUM 3.5 mmol/L (3.5-5.1); SODIUM 143 mmol/L (136-145)
[2022-04-26 08:09] LABS: ALANINE AMINOTRANSFERASE < 6 IU/L (0-55)
[2022-04-26] MEDS ORDERED: PHENYTOIN SODIUM EXT REL 100 MG CAP PO SCH (09:00)
[2022-04-26] MEDS ORDERED: ALPRAZOLAM 0.25 MG TAB PO SCH (09:00)
[2022-04-26] MEDS: LACTULOSE SYRUP 20 GM/30 ML UDC PO SCH (10:05)
[2022-04-26] MEDS: PHENYTOIN SODIUM EXT REL 100 MG CAP PO SCH ×2 (10:06→17:10)
[2022-04-26] MEDS: ALPRAZOLAM 0.25 MG TAB PO SCH ×3 (10:06→17:10)
[2022-04-26] MEDS: HYDROCODONE/APAP 5MG-325MG TAB PO PRN ×2 (10:07→21:10)
[2022-04-26] MEDS: DOCUSATE SODIUM LIQD 100 MG/10 ML UDC NG SCH ×2 (10:07→17:00)
[2022-04-27] VITALS (8 sets, daily range): BP systolic 110–144; BP diastolic 55–79
[2022-04-27] MEDS: ALPRAZOLAM 0.25 MG TAB PO SCH ×5 (01:29→21:12)
[2022-04-27] MEDS: HYDROCODONE/APAP 5MG-325MG TAB PO PRN ×2 (05:17→17:51)
[2022-04-27] MEDS: LACTULOSE SYRUP 20 GM/30 ML UDC PO SCH (08:28)
[2022-04-27] MEDS: PHENYTOIN SODIUM EXT REL 100 MG CAP PO SCH ×2 (08:30→17:22)
[2022-04-27] MEDS: DOCUSATE SODIUM LIQD 100 MG/10 ML UDC NG SCH ×2 (08:31→17:22)
[2022-04-28] VITALS (7 sets, daily range): BP systolic 124–136; BP diastolic 64–73
[2022-04-28 06:25] LABS: BASOPHILS % 0.3 % (0.0-1.0); EOSINOPHILS # (AUTO) 0.1 (0.0-0.4); EOSINOPHILS % 0.7 % (0.0-6.0); HEMATOCRIT 35.7 % (34.2-44.1); HEMOGLOBIN 12.8 g/dL (12.0-16.0); LYMPHOCYTES # (AUTO) 1.3 (1.0-3.2); LYMPHOCYTES % 18.8 % (18.0-39.1); MEAN CORPUSCULAR HEMOGLOBIN 35.4 pg (28-32); MEAN CORPUSCULAR HGB CONC 35.9 g/dL (31-35); MEAN CORPUSCULAR VOLUME 98.6 fL (81-99); MONOCYTES # (AUTO) 0.5 (0.2-0.8); MONOCYTES % 7.5 % (4.4-11.3); NEUTROPHILS # (AUTO) 4.9 (2.1-6.9); NEUTROPHILS % 72.4 % (38.7-80.0); PLATELET COUNT 118 x10e3/uL (140-360); RED BLOOD COUNT 3.62 x10e6/uL (3.6-5.1); RED CELL DISTRIBUTION WIDTH 13.5 % (11.7-14.4)
[2022-04-28 06:58] LABS: ANION GAP 10.3 mmol/L (8-16); CREATININE, SERUM 0.62 mg/dL (0.57-1.11); POTASSIUM 3.3 mmol/L (3.5-5.1)
[2022-04-28 07:24] LABS: PHENYTOIN (DILANTIN) 26.1 ug/mL (10-20)
[2022-04-28] MEDS: DOCUSATE SODIUM LIQD 100 MG/10 ML UDC NG SCH ×2 (08:56→17:00)
[2022-04-28] MEDS: LACTULOSE SYRUP 20 GM/30 ML UDC PO SCH (08:56)
[2022-04-28] MEDS: ALPRAZOLAM 0.25 MG TAB PO SCH ×4 (08:56→21:01)
[2022-04-28] MEDS: PHENYTOIN SODIUM EXT REL 100 MG CAP PO SCH ×2 (08:57→17:00)
[2022-04-28] MEDS: ACETAMINOPHEN 325 MG TAB PO PRN ×2 (09:09→09:17)
[2022-04-28] MEDS: HYDROCODONE/APAP 5MG-325MG TAB PO PRN (09:21)
[2022-04-28] MEDS ORDERED: POTASSIUM CHLORIDE 20 MEQ TAB CR PO STA (18:05)
[2022-04-29] VITALS (7 sets, daily range): BP systolic 120–140; BP diastolic 73–88
[2022-04-29] MEDS: HYDROCODONE/APAP 5MG-325MG TAB PO PRN (05:34)
[2022-04-29 05:53] LABS: BASOPHILS % 0.2 % (0.0-1.0); EOSINOPHILS % 0.3 % (0.0-6.0); HEMATOCRIT 43.5 % (34.2-44.1); HEMOGLOBIN 15.5 g/dL (12.0-16.0); LYMPHOCYTES # (AUTO) 1.6 (1.0-3.2); MEAN CORPUSCULAR HEMOGLOBIN 35.2 pg (28-32); MEAN CORPUSCULAR HGB CONC 35.6 g/dL (31-35); MEAN CORPUSCULAR VOLUME 98.9 fL (81-99); MONOCYTES # (AUTO) 0.8 (0.2-0.8); MONOCYTES % 7.2 % (4.4-11.3); NEUTROPHILS # (AUTO) 8.2 (2.1-6.9); NEUTROPHILS % 76.8 % (38.7-80.0); PLATELET COUNT 149 x10e3/uL (140-360); RED CELL DISTRIBUTION WIDTH 13.7 % (11.7-14.4)
[2022-04-29 06:23] LABS: ANION GAP 12.5 mmol/L (8-16); CALCIUM 10.8 mg/dL (8.4-10.2); CREATININE, SERUM 0.7 mg/dL (0.57-1.11); POTASSIUM 3.5 mmol/L (3.5-5.1)
[2022-04-29] MEDS: LACTULOSE SYRUP 20 GM/30 ML UDC PO SCH (06:46)
[2022-04-29] MEDS: ALPRAZOLAM 0.25 MG TAB PO SCH ×5 (09:00→21:00)
[2022-04-29] MEDS: DOCUSATE SODIUM LIQD 100 MG/10 ML UDC NG SCH ×2 (09:00→17:00)
[2022-04-29] MEDS: FLUCONAZOLE 100 MG TAB PO SCH ×2 (09:00→10:33)
[2022-04-29] MEDS: ONDANSETRON HCL INJ 2MG/ML 2ML 2 MG/ML VIAL IV PRN ×2 (09:05→14:17)
[2022-04-29] MEDS ORDERED: IOPAMIDOL 370 MG/ML 100 ML INFUS..BTL INJ ONE ×2 (12:48→22:52)
[2022-04-29] MEDS ORDERED: SODIUM CHLORIDE 0.9% 250ML 250 ML ONE (12:49)
[2022-04-29] MEDS ORDERED: MINERAL OIL 132 ML BTL PR ONE (13:30)
[2022-04-29] MEDS ORDERED: PHENYTOIN SODIUM EXT REL 100 MG CAP PO SCH (17:00)
[2022-04-29] MEDS ORDERED: POTASSIUM CHLORIDE 20 MEQ TAB CR PO ONE (18:00)
[2022-04-29] MEDS ORDERED: SODIUM CHLORIDE 0.9% 100 ML ONE (22:54)
[2022-04-30] VITALS (8 sets, daily range): BP systolic 129–145; BP diastolic 72–95
[2022-04-30] MEDS: HYDROCODONE/APAP 5MG-325MG TAB PO PRN ×2 (00:05→06:05)
[2022-04-30] MEDS: ALPRAZOLAM 0.25 MG TAB PO SCH ×5 (01:25→21:00)
[2022-04-30 06:07] LABS: EOSINOPHILS # (AUTO) 0.1 (0.0-0.4); EOSINOPHILS % 1.1 % (0.0-6.0); HEMATOCRIT 36.1 % (34.2-44.1); HEMOGLOBIN 12.7 g/dL (12.0-16.0); LYMPHOCYTES # (AUTO) 0.9 (1.0-3.2); LYMPHOCYTES % 14.9 % (18.0-39.1); MEAN CORPUSCULAR HEMOGLOBIN 34.5 pg (28-32); MEAN CORPUSCULAR HGB CONC 35.2 g/dL (31-35); MEAN CORPUSCULAR VOLUME 98.1 fL (81-99); MONOCYTES # (AUTO) 0.5 (0.2-0.8); MONOCYTES % 8.2 % (4.4-11.3); NEUTROPHILS # (AUTO) 4.6 (2.1-6.9); NEUTROPHILS % 75.5 % (38.7-80.0); PLATELET COUNT 116 x10e3/uL (140-360); RED BLOOD COUNT 3.68 x10e6/uL (3.6-5.1); RED CELL DISTRIBUTION WIDTH 14.3 % (11.7-14.4)
[2022-04-30 06:38] LABS: ANION GAP 10.9 mmol/L (8-16); CALCIUM 9.9 mg/dL (8.4-10.2); CREATININE, SERUM 0.59 mg/dL (0.57-1.11); MAGNESIUM 1.9 MG/DL (1.3-2.1); PHOSPHORUS 2.3 MG/DL (2.3-4.7); POTASSIUM 3.9 mmol/L (3.5-5.1)
[2022-04-30 06:51] LABS: PHENYTOIN (DILANTIN) 17.07 ug/mL (10-20)
[2022-04-30] MEDS: FLUCONAZOLE 100 MG TAB PO SCH (08:06)
[2022-04-30] MEDS: DOCUSATE SODIUM LIQD 100 MG/10 ML UDC NG SCH ×2 (08:07→16:07)
[2022-04-30] MEDS: LACTULOSE SYRUP 20 GM/30 ML UDC PO SCH (08:07)
[2022-04-30] MEDS ORDERED: DIFLUCAN100 MG PO (13:44)
[2022-04-30] MEDS ORDERED: ACETAMINOPHEN325 M1 PO (13:44)
[2022-04-30] MEDS ORDERED: CEFUROXIME500 MG PO (13:47)
== END 2022-04-30 22:39 | disposition home health service (06) | DRG 699 ==
LOC: ER 17:01 → ERHOLD 18:33 → MED/SURG 19:54 → MED/SURG3 04-26 14:10
PROVIDERS: ADMIT Internal Medicine; ATTEND Internal Medicine
PROC: 02HV33Z Insertion of Infusion Device into Superior Vena Cava, Percutaneous Approach (ICD-10-PCS; principal; 2022-04-29)
DX: T83.511A Infection and inflammatory reaction due to indwelling urethral catheter, initial encounter (principal); B37.49 Other urogenital candidiasis; Z16.24 Resistance to multiple antibiotics; I69.351 Hemiplegia and hemiparesis following cerebral infarction affecting right dominant side; E87.6 Hypokalemia; F41.9 Anxiety disorder, unspecified; G89.29 Other chronic pain; B96.20 Unspecified Escherichia coli [E. coli] as the cause of diseases classified elsewhere; T42.0X5A Adverse effect of hydantoin derivatives, initial encounter; R42 Dizziness and giddiness; Z20.822 Contact with and (suspected) exposure to COVID-19; M85.80 Other specified disorders of bone density and structure, unspecified site; K52.9 Noninfective gastroenteritis and colitis, unspecified; N20.0 Calculus of kidney; G40.909 Epilepsy, unspecified, not intractable, without status epilepticus; N31.9 Neuromuscular dysfunction of bladder, unspecified; D72.819 Decreased white blood cell count, unspecified; F17.200 Nicotine dependence, unspecified, uncomplicated; R31.29 Other microscopic hematuria; I69.398 Other sequelae of cerebral infarction; Z99.89 Dependence on other enabling machines and devices
CPT/HCPCS: 36415; 36569; 70450; 71045; 74178; 80048; 80053; 80185; 81001; 82550; 82553; 83735; 84100; 84484; 85025; 87040; 87086; 87186; 93005; 99251; 99284; J0696; J2405; J3370; J7050; Q9967

== ENCOUNTER 2022-07-07 18:45 | Emergency (ER) | payer MEDICARE, BC ==
[~2022-07-07] VITALS: Ht 160 cm; Wt 54.4 kg
[~2022-07-07 18:45] MED LIST changes: +ACETAMINOPHEN325 M1 PO; +CEFUROXIME500 MG PO; +DIFLUCAN100 MG PO
== END 2022-07-07 20:10 | disposition left against medical advice (07) ==
LOC: ER 19:13
DX: Z46.6 Encounter for fitting and adjustment of urinary device (principal)

== ENCOUNTER 2022-10-15 21:59 | Emergency (ER) | payer MEDICARE, BC ==
[~2022-10-15] VITALS: Ht 160 cm; Wt 54.4 kg
== END 2022-10-15 22:48 | disposition home or self-care (01) ==
LOC: ER 22:17
DX: Z46.6 Encounter for fitting and adjustment of urinary device (principal); G40.909 Epilepsy, unspecified, not intractable, without status epilepticus; F41.9 Anxiety disorder, unspecified; M54.9 Dorsalgia, unspecified; G89.29 Other chronic pain; I69.351 Hemiplegia and hemiparesis following cerebral infarction affecting right dominant side
CPT/HCPCS: 51700; 99282

== ENCOUNTER 2022-12-27 12:52 | Inpatient (IN) | payer MEDICARE, BC ==
[~2022-12-27] VITALS: Ht 160 cm; Wt 54.4 kg
[2022-12-27 13:40] LABS: BASOPHILS % 0.3 % (0.0-1.0); EOSINOPHILS % 0.5 % (0.0-6.0); HEMATOCRIT 40.5 % (34.2-44.1); HEMOGLOBIN 13.9 g/dL (12.0-16.0); LYMPHOCYTES # (AUTO) 1.2 (1.0-3.2); LYMPHOCYTES % 33.5 % (18.0-39.1); MEAN CORPUSCULAR HGB CONC 34.3 g/dL (31-35); MEAN CORPUSCULAR VOLUME 96.2 fL (81-99); MONOCYTES # (AUTO) 0.3 (0.2-0.8); MONOCYTES % 7.6 % (4.4-11.3); NEUTROPHILS # (AUTO) 2.1 (2.1-6.9); NEUTROPHILS % 57.8 % (38.7-80.0); PLATELET COUNT 87 x10e3/uL (140-360); RED BLOOD COUNT 4.21 x10e6/uL (3.6-5.1); RED CELL DISTRIBUTION WIDTH 14.6 % (11.7-14.4)
[2022-12-27 14:05] LABS: ALANINE AMINOTRANSFERASE 9 IU/L (0-55); ALBUMIN 3.1 g/dL (3.5-5.0); ALBUMIN/GLOBULIN RATIO 0.9 (0.8-2.0); ALKALINE PHOSPHATASE 63 IU/L (40-150); ANION GAP 14.8 mmol/L (8-16); BLOOD UREA NITROGEN 10 mg/dL (7-26); BUN/CREATININE RATIO 15 (6-25); CALCIUM 10.1 mg/dL (8.4-10.2); CARBON DIOXIDE 20 mmol/L (22-29); CHLORIDE 107 mmol/L (98-107); CREATINE KINASE 15 IU/L (29-168); CREATININE, SERUM 0.68 mg/dL (0.57-1.11); GLUCOSE 175 mg/dL (74-118); POTASSIUM 3.8 mmol/L (3.5-5.1); SODIUM 138 mmol/L (136-145)
[2022-12-27] MEDS ORDERED: DEXTROSE 5%/0.45% SOD CHL 1,000 ML IV ONE (14:30)
[2022-12-27 15:03] LABS: CLARITY,URINE SL CLOUDY (CLEAR); COLOR,URINE YELLOW (YELLOW)
[2022-12-27 15:04] LABS: KETONES,URINE NEGATIVE (NEGATIVE); LEUKOCYTE ESTERASE ,URINE SMALL (NEGATIVE); NITRITE,URINE POSITIVE (NEGATIVE); PROTEIN,URINE DIPSTICK 1+ (NEGATIVE); URINE UROBILINOGEN 1 mg/dL (0.2 - 1)
[2022-12-27 15:07] LABS: RBC,URINE 0-5 /HPF (0-5)
[2022-12-27 15:08] LABS: BACTERIA,URINE MODERATE /HPF
[2022-12-27 21:35] VITALS: BP 130/72
[2022-12-27 22:09] VITALS: BP 130/72
[2022-12-28 01:47] VITALS: BP 114/63
[2022-12-28 06:07] VITALS: BP 104/49
[2022-12-28 08:30] VITALS: BP 117/58
[2022-12-28 08:39] VITALS: BP 117/58
[2022-12-28 16:33] VITALS: BP 121/75
[2022-12-28] MEDS: PHENYTOIN SODIUM EXT REL 100 MG CAP PO SCH (17:20)
[2022-12-28 19:45] VITALS: BP 118/60
[2022-12-28] MEDS: ALPRAZOLAM 0.25 MG TAB PO PRN (20:21)
[2022-12-29] VITALS (8 sets, daily range): BP systolic 116–137; BP diastolic 50–68
[2022-12-29 07:36] LABS: BASOPHILS % 0.5 % (0.0-1.0); EOSINOPHILS % 1.4 % (0.0-6.0); HEMATOCRIT 33.5 % (34.2-44.1); HEMOGLOBIN 11.9 g/dL (12.0-16.0); LYMPHOCYTES # (AUTO) 0.8 (1.0-3.2); LYMPHOCYTES % 37.9 % (18.0-39.1); MEAN CORPUSCULAR HEMOGLOBIN 35.4 pg (28-32); MEAN CORPUSCULAR HGB CONC 35.5 g/dL (31-35); MEAN CORPUSCULAR VOLUME 99.7 fL (81-99); MONOCYTES # (AUTO) 0.3 (0.2-0.8); MONOCYTES % 11.9 % (4.4-11.3); NEUTROPHILS # (AUTO) 1.1 (2.1-6.9); NEUTROPHILS % 47.8 % (38.7-80.0); PLATELET COUNT 55 x10e3/uL (140-360); RED BLOOD COUNT 3.36 x10e6/uL (3.6-5.1); RED CELL DISTRIBUTION WIDTH 15.3 % (11.7-14.4)
[2022-12-29 07:55] LABS: ANION GAP 8.8 mmol/L (8-16); CALCIUM 9.6 mg/dL (8.4-10.2); CREATININE, SERUM 0.57 mg/dL (0.57-1.11); POTASSIUM 3.8 mmol/L (3.5-5.1)
[2022-12-29] MEDS: PHENYTOIN SODIUM EXT REL 100 MG CAP PO SCH ×2 (08:26→16:35)
[2022-12-29] MEDS: ALPRAZOLAM 0.25 MG TAB PO PRN ×2 (13:30→21:07)
[2022-12-29] MEDS: ACETAMINOPHEN 325 MG TAB PO PRN (18:53)
[2022-12-30] VITALS: BP 118/63
[2022-12-30] MEDS: ACETAMINOPHEN 325 MG TAB PO PRN ×2 (02:10→09:31)
[2022-12-30 04:00] VITALS: BP 126/67
[2022-12-30] MEDS: ALPRAZOLAM 0.25 MG TAB PO PRN (06:01)
[2022-12-30 06:26] LABS: BASOPHILS % 0.3 % (0.0-1.0); HEMATOCRIT 34.3 % (34.2-44.1); LYMPHOCYTES # (AUTO) 1.2 (1.0-3.2); LYMPHOCYTES % 37.5 % (18.0-39.1); MEAN CORPUSCULAR HEMOGLOBIN 35.2 pg (28-32); MEAN CORPUSCULAR VOLUME 100.6 fL (81-99); MONOCYTES # (AUTO) 0.3 (0.2-0.8); MONOCYTES % 10.7 % (4.4-11.3); NEUTROPHILS # (AUTO) 1.6 (2.1-6.9); NEUTROPHILS % 50.5 % (38.7-80.0); PLATELET COUNT 58 x10e3/uL (140-360); RED BLOOD COUNT 3.41 x10e6/uL (3.6-5.1); RED CELL DISTRIBUTION WIDTH 15.2 % (11.7-14.4)
[2022-12-30 06:40] LABS: ANION GAP 8.9 mmol/L (8-16); CALCIUM 9.3 mg/dL (8.4-10.2); CREATININE, SERUM 0.53 mg/dL (0.57-1.11); POTASSIUM 3.9 mmol/L (3.5-5.1)
[2022-12-30 06:47] LABS: PHENYTOIN (DILANTIN) 11.77 ug/mL (10-20)
[2022-12-30 07:15] VITALS: BP 134/63
[2022-12-30 07:48] VITALS: BP 134/63
[2022-12-30] MEDS: PHENYTOIN SODIUM EXT REL 100 MG CAP PO SCH (09:27)
[2022-12-30 10:21] LABS: LYMPHOCYTES % (MANUAL) 40 % (19-48); MONOCYTES % (MANUAL) 5 % (3.4-9.0); NEUTROPHILS % (MANUAL) 55 % (40-74); PLATELET ESTIMATE MODERATELY DECREASED; PLATELET MORPHOLOGY COMMENT NORMAL; RBC MORPHOLOGY COMMENT NORMAL
[2022-12-30 11:41] VITALS: BP 134/59
[2022-12-30 11:43] VITALS: BP 134/59
[2022-12-30] MEDS ORDERED: PENCILLIN V PO250 MG PO (12:25)
== END 2022-12-30 15:38 | disposition home health service (06) | DRG 699 ==
LOC: ER 12:58 → ERHOLD 16:07 → MED/SURG3 18:05
PROVIDERS: ADMIT Internal Medicine; ATTEND Internal Medicine
DX: T83.511A Infection and inflammatory reaction due to indwelling urethral catheter, initial encounter (principal); I69.351 Hemiplegia and hemiparesis following cerebral infarction affecting right dominant side; N39.0 Urinary tract infection, site not specified; B96.20 Unspecified Escherichia coli [E. coli] as the cause of diseases classified elsewhere; G40.909 Epilepsy, unspecified, not intractable, without status epilepticus; F41.9 Anxiety disorder, unspecified; M54.9 Dorsalgia, unspecified; G89.29 Other chronic pain; D69.6 Thrombocytopenia, unspecified; N20.0 Calculus of kidney; N28.1 Cyst of kidney, acquired; N31.9 Neuromuscular dysfunction of bladder, unspecified; Z20.822 Contact with and (suspected) exposure to COVID-19; Z99.3 Dependence on wheelchair; Z85.038 Personal history of other malignant neoplasm of large intestine; Z87.891 Personal history of nicotine dependence
CPT/HCPCS: 0223U; 36415; 71046; 74176; 80048; 80053; 80185; 81001; 82550; 82553; 84484; 85025; 87086; 87186; 93005; 99284; J0692

== ENCOUNTER 2023-01-23 12:07 | Emergency (ER) | payer MEDICARE, BC ==
[~2023-01-23] VITALS: Ht 160 cm; Wt 54.4 kg
[~2023-01-23 12:07] MED LIST changes: +PENCILLIN V PO250 MG PO
[2023-01-23 13:29] LABS: CLARITY,URINE TURBID (CLEAR); COLOR,URINE YELLOW (YELLOW); KETONES,URINE NEGATIVE (NEGATIVE); LEUKOCYTE ESTERASE ,URINE LARGE (NEGATIVE); NITRITE,URINE POSITIVE (NEGATIVE); PROTEIN,URINE DIPSTICK 1+ (NEGATIVE); URINE UROBILINOGEN 0.2 mg/dL (0.2 - 1)
[2023-01-23 13:30] LABS: BACTERIA,URINE MANY /HPF; EPITHELIAL CELLS,URINE MODERATE /LPF; RBC,URINE >50 /HPF (0-5); WBC,URINE (MAN) >50 /HPF (0-5)
[2023-01-23] MEDS ORDERED: CEFDINIR300 MG PO (13:41)
[2023-01-23] MEDS ORDERED: CEFDINIR 300 MG CAP PO ONE (13:45)
[2023-01-23 16:24] VITALS: BP 165/67
== END 2023-01-23 15:52 | disposition home or self-care (01) ==
LOC: ER 12:19
DX: Z46.6 Encounter for fitting and adjustment of urinary device (principal); G40.909 Epilepsy, unspecified, not intractable, without status epilepticus; F41.9 Anxiety disorder, unspecified; Z86.73 Personal history of transient ischemic attack (TIA), and cerebral infarction without residual deficits
CPT/HCPCS: 81001; 99283